=== PATIENT | female | born 2000 | race African-American/Black ===

== ENCOUNTER 2019-07-29 14:58 | Emergency (ER) | payer OTHER ==
--- NOTE | 2019-07-29 16:13 | RAD ---
FRONTAL VIEW CHEST: INDICATIONS: Dry cough. COMPARISON: 02/03/2019 FINDINGS: The lungs are clear. No effusion or pneumothorax. The cardiac silhouette is normal in size. IMPRESSION: No focal consolidation. POS: [facility]
== END 2019-07-29 17:01 | disposition left against medical advice (07) ==
LOC: ERS 14:58
DX: Z53.21 Procedure and treatment not carried out due to patient leaving prior to being seen by health care provider (principal)
CPT/HCPCS: 71045; 94640; J7620

== ENCOUNTER 2020-10-12 22:51 | Emergency (ER) | payer BC, SELFPAY ==
[2020-10-12] MEDS ORDERED: Albuterol Sulfate 2.5 mg/0.5 ml Neb ONE (23:47)
== END 2020-10-13 00:16 | disposition home or self-care (01) ==
LOC: ERS 22:51
DX: J45.901 Unspecified asthma with (acute) exacerbation (principal)
CPT/HCPCS: 94640; J7611; J7620

== ENCOUNTER 2021-01-12 07:25 | Emergency (ER) | payer BC ==
[2021-01-12] MEDS ORDERED: Ondansetron ODT 4 MG TAB ONE (07:51)
[2021-01-12] MEDS ORDERED: Ibuprofen 800 MG TAB ONE (07:51)
[2021-01-12 08:07] LABS: Bilirubin Negative (Negative); Blood, Urine 3+ (Negative); Clarity Turbid (Clear); Glucose, Urine (Dipstick) Normal (Negative); Ketone, Urine Negative (Negative); Leukocyte Negative Leu/uL (Negative); Nitrite Negative (Negative); Protein, Urine (Dipstick) 30 mg/dL (Neg-Trace); Specific Gravity, Urine 1.027 (1.002-1.036); Urobilinogen Normal mg/dL (Less than 2); WBC/HPF 0-3 HPF (0-3); pH, Urine 6.5 (5.0-9.0)
[2021-01-12 08:17] LABS: Bacteria/HPF 1+ HPF (None Seen)
[2021-01-12 08:18] LABS: Pregnancy Test - Urine (BHCG) Negative (Negative); Pregu Control Background? CLEAR/WHITE (CLR/WHITE); Pregu Control Bar Appear? YES (CONTROL BAR); Specific Gravity 1.027 (1.002-1.036)
== END 2021-01-12 08:36 | disposition home or self-care (01) ==
LOC: ERS 07:25
DX: N94.6 Dysmenorrhea, unspecified (principal); R11.2 Nausea with vomiting, unspecified; J45.909 Unspecified asthma, uncomplicated
CPT/HCPCS: 81003; 81015; 81025; 99284; Q0162

== ENCOUNTER 2021-03-29 13:27 | Emergency (ER) | payer BC ==
[2021-03-29 18:30] LABS: SARS-CoV-2 PCR by NAA Not Detected (NotDetected)
== END 2021-03-29 14:18 | disposition home or self-care (01) ==
LOC: ERS 13:27
DX: J45.909 Unspecified asthma, uncomplicated (principal); Z20.822 Contact with and (suspected) exposure to COVID-19
CPT/HCPCS: 87635; 99283; U0003; U0005

== ENCOUNTER 2023-10-19 11:59 | Emergency (ER) | payer BC ==
[2023-10-19] MEDS ORDERED: Cyclobenzaprine 10 MG TAB ONE (12:51)
[2023-10-19] MEDS ORDERED: Ibuprofen 800 MG TAB ONE (12:52)
[2023-10-19] MEDS ORDERED: HYDROcodone/Acetaminophen 5/325 mg Tablet ONE (12:52)
== END 2023-10-19 13:40 | disposition home or self-care (01) ==
LOC: ERS 11:59
DX: M43.6 Torticollis (principal)
CPT/HCPCS: 99283

== ENCOUNTER 2024-09-20 21:33 | Emergency (ER) | payer BC ==
[2024-09-20] MEDS ORDERED: Ketorolac Tromethamine 30 MG (1 mL) VIAL ONE (21:58)
== END 2024-09-20 22:26 | disposition home or self-care (01) ==
LOC: ERS 21:33
DX: S39.012A Strain of muscle, fascia and tendon of lower back, initial encounter (principal); X58.XXXA Exposure to other specified factors, initial encounter
CPT/HCPCS: 96372; 99283; J1885

== ENCOUNTER 2024-09-25 18:43 | Emergency (ER) | payer BC ==
[~2024-09-25 18:43] MED LIST: Iopamidol-370 76% 500 ML MDV (1 ML CHARGE) ONE
[2024-09-25 19:18] LABS: #Basophils 0.07 10x3/uL (0.0-0.2); %Basophils 0.7 % (0.0-1.0); %Eosinophils 1.6 % (0.0-10.0); %Neutrophils 69.4 % (42.0-75.0); Hematocrit 35.3 % (36.0-47.0); Hemoglobin 10.9 g/dL (12.0-16.0); Mean Corpuscular HGB CONC 30.9 g/dL (32.0-36.0); Mean Corpuscular Hemoglobin 24.4 pg (27.0-31.0); Mean Corpuscular Volume 79.1 fL (78.0-98.0); Platelet Count 402 10x3/uL (130-400); RBC Distribution Width 16.6 % (11.5-14.5); Red Blood Cell (RBC) Count 4.46 mill/uL (4.20-5.40)
[2024-09-25 19:44] LABS: BHCG - Serum Negative (NEGATIVE); Pregs Control Background? CLEAR/WHITE (CLR/WHITE); Pregs Control Bar Appear? YES (CONTROL BAR)
[2024-09-25] MEDS ORDERED: Ketorolac Tromethamine 30 MG (1 mL) VIAL ONE (19:48)
[2024-09-25] MEDS ORDERED: Morphine 2 MG/ML VIAL ONE (19:48)
[2024-09-25 19:49] LABS: ALT (SGPT) 17 U/L (8-55); AST (SGOT) 18 U/L (5-34); Albumin 4.1 g/dL (3.5-5.0); Alkaline Phosphatase 59 U/L (40-110); Anion Gap 12 mmol/L (10-20); BUN (Urea Nitrogen) 11 mg/dL (7.0-18.7); Bilirubin, Total 0.5 mg/dL (0.2-1.2); Calc. Creatinine Clearance 0 mL/min (70-130); Calcium 9.5 mg/dL (7.8-10.44); Carbon Dioxide 23 mmol/L (22-29); Chloride 105 mmol/L (98-107); Estimated GFR 113; Glucose 82 mg/dL (70-105); Lipase 15 U/L (8-78); Potassium 3.6 mmol/L (3.5-5.1); Protein, Total 8.1 g/dL (6.0-8.3); Sodium 136 mmol/L (136-145)
[2024-09-25 21:57] LABS: Bacteria/HPF None Seen HPF (None Seen); Bilirubin Negative (Negative); Blood, Urine 2+ (Negative); CAUTI Indications for Culture Immunosuppressed; Clarity Clear (Clear); Glucose, Urine (Dipstick) Normal (Negative); Ketone, Urine 80 mg/dL (Negative); Leukocyte Negative Leu/uL (Negative); Nitrite Negative (Negative); Protein, Urine (Dipstick) 10 mg/dL (Neg-Trace); Specific Gravity, Urine Greater than 1.060 (1.002-1.036); Urobilinogen Normal mg/dL (Less than 2); WBC/HPF 0-3 HPF (0-3); pH, Urine 6.5 (5.0-9.0)
[2024-09-25 21:58] LABS: Pregnancy Test - Urine (BHCG) Negative (Negative); Pregu Control Background? CLEAR/WHITE (CLR/WHITE); Pregu Control Bar Appear? YES (CONTROL BAR); Specific Gravity Greater than 1.060 (1.002-1.036); Urine Culture Reflex No No; Urine Culture Reflex Yes Yes
== END 2024-09-25 22:21 | disposition home or self-care (01) ==
LOC: ERS 18:43
DX: M54.50 Low back pain, unspecified (principal); R10.9 Unspecified abdominal pain; J45.909 Unspecified asthma, uncomplicated; Z75.3 Unavailability and inaccessibility of health-care facilities; Z79.51 Long term (current) use of inhaled steroids
CPT/HCPCS: 36415; 74177; 80053; 81001; 81025; 83690; 84703; 85025; 87086; 96374; 96375; J1885; J2272; Q9967